=== PATIENT | male | born 1955 | race Caucasian/White ===

== ENCOUNTER 2017-03-14 11:59 | Inpatient (IN) | payer MEDICARE, MEDICAID ==
[~2017-03-14] VITALS: Ht 185.4 cm; Wt 65.8 kg
[2017-03-14] MEDS ORDERED: HALOPERIDOL 5 MG TABLET PO PRN (12:45)
[2017-03-14] MEDS ORDERED: LORazepam 2 MG TABLET PO PRN (12:45)
[2017-03-14] MEDS ORDERED: ZOLPIDEM TARTRATE 10 MG TABLET PO PRN (12:45)
[2017-03-14 12:54] VITALS: BP 111/63
[2017-03-14] MEDS ORDERED: TRAZ-144 PO (13:20)
[2017-03-14] MEDS ORDERED: CLON.5 PO (13:20)
[2017-03-14] MEDS ORDERED: OLAN10TA3 PO (13:20)
[2017-03-14] MEDS ORDERED: ARIP10TA8 PO (13:20)
[2017-03-14] MEDS ORDERED: ESCI20TA PO (13:20)
[2017-03-14] MEDS ORDERED: DEXL30CA3 PO (13:20)
[2017-03-14] MEDS ORDERED: PNEUMOCOCCAL VACCINE POLYVALENT 0.5 ML VIAL [PPSV23] IM ONE (13:30)
[2017-03-14 16:17] VITALS: BP 113/67
[2017-03-14] MEDS: ClonazePAM 0.5 MG TABLET PO SCH (16:45)
[2017-03-15 06:54] VITALS: BP 117/76
[2017-03-15] MEDS ORDERED: PETROLATUM,WHITE 71 GM JELLY TP PRN (07:15)
[2017-03-15] MEDS ORDERED: LOPERAMIDE HCL 2 MG CAPSULE PO PRN (07:15)
[2017-03-15] MEDS ORDERED: MAG HYDROX/AL HYDROX/SIMETH ES 30 ML SUSPENSION UDCUP PO PRN (07:15)
[2017-03-15] MEDS ORDERED: CloNIDine HCL 0.1 MG TABLET PO PRN (07:15)
[2017-03-15] MEDS ORDERED: ONDANSETRON HCL 4 MG TABLET PO PRN (07:15)
[2017-03-15] MEDS ORDERED: ALBUTEROL SULFATE HFA 90 MCG/PUFF 8 GM INHALER IH PRN (07:15)
[2017-03-15] MEDS ORDERED: BENZOCAINE/MENTHOL LOZENGE MM PRN (07:15)
[2017-03-15] MEDS ORDERED: IBUPROFEN 600 MG TABLET PO PRN (07:15)
[2017-03-15] MEDS ORDERED: MAGNESIUM HYDROXIDE SUSPENSION 30 ML UDCUP PO PRN (07:15)
[2017-03-15] MEDS ORDERED: BACITRACIN 28.4 GM OINTMENT TP PRN (07:15)
[2017-03-15] MEDS ORDERED: ACETAMINOPHEN 325 MG TABLET PO PRN (07:15)
[2017-03-15 08:36] LABS: BASOPHILS # (AUTO) 0.05 K/uL (0.00-0.20); BASOPHILS % (AUTO) 0.6 % (0.0-2.0); EOSINOPHILS # (AUTO) 0.03 K/uL (0.00-0.70); EOSINOPHILS % (AUTO) 0.34 % (1.0-6.0); HEMATOCRIT 34.7 % (41-53); HEMOGLOBIN 11.4 g/dL (13.5-17.5); LYMPHOCYTES % (AUTO) 23.1 % (22.0-44.0); MEAN CORPUSCULAR HEMOGLOBIN 30.7 pg (26.0-34.0); MEAN CORPUSCULAR VOLUME 93 fL (80-100); MONOCYTES # (AUTO) 0.5 K/uL (0.1-1.0); MONOCYTES % (AUTO) 5.4 % (2.0-9.0); NEUTROPHILS # (AUTO) 6.1 K/uL (1.8-7.7); NEUTROPHILS % (AUTO) 70.6 % (40.0-70.0); RED BLOOD CELL COUNT(AUTO) 3.73 MIL/uL (4.50-5.90); RED CELL DISTRIBUTION WIDTH 15.5 % (11.5-14.5)
[2017-03-15 08:39] VITALS: BP 111/73
[2017-03-15 08:40] LABS: PLATELET COUNT (AUTO) 750 K/uL (150-450)
[2017-03-15 08:41] LABS: HEMOGLOBIN A1C 6.2 % (4.5-6.2)
[2017-03-15 08:59] LABS: ALANINE AMINOTRANSFERASE 18 U/L (12-78); ALBUMIN 2.5 g/dL (3.4-5.0); ALKALINE PHOSPHATASE 79 U/L (46-116); ANION GAP 4 mmol/L (8-16); ASPARTATE AMINOTRANSFERASE 18 U/L (15-37); BILIRUBIN,TOTAL 0.2 mg/dL (0.1-1.0); CALCIUM, TOTAL 8.6 mg/dL (8.8-10.5); CARBON DIOXIDE 31 mmol/L (22-29); CHLORIDE 103 mmol/L (98-107); CHOL/HDL RATIO 4.6 (4.2-7.3); CHOLESTEROL 110 mg/dL (131-200); CREATININE 0.79 mg/dL (0.60-1.30); FREE T4 (FREE THYROXINE) 1.04 ng/dL (0.76-1.46); GLOMERULAR FILTR. RATE CALC > 60 mL/min (>60); GLUCOSE,RANDOM 84 mg/dL (70-110); HDL CHOLESTEROL 24 mg/dL (40-60); LDL CHOL (CALC.) 73 mg/dL (0-130); POTASSIUM 5.1 mmol/L (3.5-5.1); SODIUM SERUM 138 mmol/L (136-145); THYROID STIMULATING HORMONE 0.69 uIU/mL (0.36-3.74); TOTAL PROTEIN, SERUM 7.2 g/dL (6.4-8.2); TRIGLYCERIDES 64 mg/dL (15-150); UREA NITROGEN, BLOOD 23 mg/dL (7-18)
[2017-03-15] MEDS: ClonazePAM 0.5 MG TABLET PO SCH (09:00)
[2017-03-15] MEDS ORDERED: TraZODone HCL 50 MG TABLET PO SCH (09:00)
[2017-03-15] MEDS: ARIPiprazole 10 MG TABLET PO SCH (09:08)
[2017-03-15] MEDS: ESCITALOPRAM OXALATE 20 MG TABLET PO SCH (09:09)
[2017-03-15] MEDS: OLANZapine 10 MG TABLET PO SCH (09:09)
[2017-03-15 16:02] VITALS: BP 115/77
[2017-03-15] MEDS: TraZODone HCL 50 MG TABLET PO SCH (20:35)
[2017-03-16 00:03] VITALS: BP 114/81
[2017-03-16] MEDS: FERROUS SULFATE 325 MG EC TABLET PO SCH (06:56)
[2017-03-16 07:28] LABS: BASOPHILS # (AUTO) 0.04 K/uL (0.00-0.20); BASOPHILS % (AUTO) 0.5 % (0.0-2.0); EOSINOPHILS # (AUTO) 0.04 K/uL (0.00-0.70); EOSINOPHILS % (AUTO) 0.53 % (1.0-6.0); HEMATOCRIT 35.5 % (41-53); HEMOGLOBIN 11.9 g/dL (13.5-17.5); LYMPHOCYTES % (AUTO) 23.2 % (22.0-44.0); MEAN CORPUSCULAR HEMOGLOBIN 30.8 pg (26.0-34.0); MEAN CORPUSCULAR HGB CONC 33.4 G/dL (31.0-37.0); MEAN CORPUSCULAR VOLUME 92 fL (80-100); MONOCYTES # (AUTO) 0.6 K/uL (0.1-1.0); MONOCYTES % (AUTO) 6.8 % (2.0-9.0); NEUTROPHILS # (AUTO) 5.8 K/uL (1.8-7.7); NEUTROPHILS % (AUTO) 68.9 % (40.0-70.0); RED BLOOD CELL COUNT(AUTO) 3.85 MIL/uL (4.50-5.90); RED CELL DISTRIBUTION WIDTH 15.6 % (11.5-14.5)
[2017-03-16 07:37] LABS: PLATELET COUNT (AUTO) 850 K/uL (150-450)
[2017-03-16 08:07] VITALS: BP 111/70
[2017-03-16] MEDS: ARIPiprazole 10 MG TABLET PO SCH (08:54)
[2017-03-16] MEDS: OMEPRAZOLE 20 MG CAPSULE PO SCH (08:54)
[2017-03-16] MEDS: ESCITALOPRAM OXALATE 20 MG TABLET PO SCH (08:54)
[2017-03-16] MEDS: OLANZapine 10 MG TABLET PO SCH (08:54)
[2017-03-16] MEDS: TAMSULOSIN HCL 0.4 MG CAPSULE PO SCH (08:54)
[2017-03-16 09:49] LABS: PLATELET MORPHOLOGY COMMENT INCREASED
[2017-03-16 16:00] VITALS: BP 105/70
[2017-03-16] MEDS: TraZODone HCL 50 MG TABLET PO SCH (20:06)
[2017-03-17 01:37] VITALS: BP 110/67
[2017-03-17] MEDS: FERROUS SULFATE 325 MG EC TABLET PO SCH (07:02)
[2017-03-17 08:27] VITALS: BP 116/67
[2017-03-17] MEDS: ARIPiprazole 10 MG TABLET PO SCH (08:54)
[2017-03-17] MEDS: TAMSULOSIN HCL 0.4 MG CAPSULE PO SCH (08:54)
[2017-03-17] MEDS: OMEPRAZOLE 20 MG CAPSULE PO SCH (08:54)
[2017-03-17] MEDS: ESCITALOPRAM OXALATE 20 MG TABLET PO SCH (08:54)
[2017-03-17] MEDS: OLANZapine 10 MG TABLET PO SCH (08:55)
[2017-03-17] MEDS: ASPIRIN 81 MG CHEWABLE TABLET PO SCH (10:20)
[2017-03-17 16:04] VITALS: BP 121/73
[2017-03-17] MEDS: TraZODone HCL 50 MG TABLET PO SCH (20:09)
[2017-03-18 00:50] VITALS: BP 119/65
[2017-03-18] MEDS: FERROUS SULFATE 325 MG EC TABLET PO SCH (06:52)
[2017-03-18 08:19] LABS: BASOPHILS % (AUTO) 1.2 % (0.0-2.0); EOSINOPHILS % (AUTO) 0.9 % (1.0-6.0); HEMATOCRIT 35.5 % (41-53); HEMOGLOBIN 11.9 g/dL (13.5-17.5); LYMPHOCYTES # (AUTO) 2.4 K/uL (1.0-4.8); LYMPHOCYTES % (AUTO) 30.2 % (22.0-44.0); MEAN CORPUSCULAR HEMOGLOBIN 30.6 pg (26.0-34.0); MEAN CORPUSCULAR HGB CONC 33.5 G/dL (31.0-37.0); MEAN CORPUSCULAR VOLUME 91 fL (80-100); MONOCYTES # (AUTO) 0.6 K/uL (0.1-1.0); MONOCYTES % (AUTO) 7.2 % (2.0-9.0); NEUTROPHILS # (AUTO) 4.7 K/uL (1.8-7.7); NEUTROPHILS % (AUTO) 60.5 % (40.0-70.0); RED BLOOD CELL COUNT(AUTO) 3.89 MIL/uL (4.50-5.90)
[2017-03-18 08:29] VITALS: BP 126/72
[2017-03-18] MEDS: ASPIRIN 81 MG CHEWABLE TABLET PO SCH (08:57)
[2017-03-18] MEDS: OMEPRAZOLE 20 MG CAPSULE PO SCH (08:57)
[2017-03-18] MEDS: ESCITALOPRAM OXALATE 20 MG TABLET PO SCH (08:57)
[2017-03-18] MEDS: OLANZapine 10 MG TABLET PO SCH (08:57)
[2017-03-18] MEDS: TAMSULOSIN HCL 0.4 MG CAPSULE PO SCH (08:57)
[2017-03-18] MEDS: ARIPiprazole 10 MG TABLET PO SCH (08:57)
[2017-03-18 09:03] LABS: PLATELET COUNT (AUTO) 833 K/uL (150-450)
[2017-03-18 09:07] LABS: ALANINE AMINOTRANSFERASE 15 U/L (12-78); ALBUMIN 2.5 g/dL (3.4-5.0); ALKALINE PHOSPHATASE 74 U/L (46-116); ANION GAP 4 mmol/L (8-16); ASPARTATE AMINOTRANSFERASE 18 U/L (15-37); CALCIUM, TOTAL 8.8 mg/dL (8.8-10.5); CARBON DIOXIDE 31 mmol/L (22-29); CHLORIDE 104 mmol/L (98-107); GLOMERULAR FILTR. RATE CALC > 60 mL/min (>60); GLUCOSE,RANDOM 78 mg/dL (70-110); POTASSIUM 3.9 mmol/L (3.5-5.1); SODIUM SERUM 139 mmol/L (136-145); TOTAL PROTEIN, SERUM 7.6 g/dL (6.4-8.2); UREA NITROGEN, BLOOD 31 mg/dL (7-18)
[2017-03-18 09:19] LABS: BILIRUBIN,TOTAL 0.2 mg/dL (0.1-1.0)
[2017-03-18 16:18] VITALS: BP 117/70
[2017-03-18] MEDS: ClonazePAM 0.5 MG TABLET PO PRN (19:03)
[2017-03-18] MEDS: TraZODone HCL 50 MG TABLET PO SCH (20:33)
[2017-03-19] MEDS: FERROUS SULFATE 325 MG EC TABLET PO SCH (06:25)
[2017-03-19 06:42] VITALS: BP 110/73
[2017-03-19 07:58] LABS: BASOPHILS # (AUTO) 0.07 K/uL (0.00-0.20); BASOPHILS % (AUTO) 0.8 % (0.0-2.0); EOSINOPHILS # (AUTO) 0.07 K/uL (0.00-0.70); EOSINOPHILS % (AUTO) 0.79 % (1.0-6.0); HEMATOCRIT 34.3 % (41-53); HEMOGLOBIN 11.3 g/dL (13.5-17.5); LYMPHOCYTES # (AUTO) 2.5 K/uL (1.0-4.8); LYMPHOCYTES % (AUTO) 28.8 % (22.0-44.0); MEAN CORPUSCULAR HEMOGLOBIN 30.2 pg (26.0-34.0); MEAN CORPUSCULAR HGB CONC 32.9 G/dL (31.0-37.0); MEAN CORPUSCULAR VOLUME 92 fL (80-100); MONOCYTES # (AUTO) 0.5 K/uL (0.1-1.0); MONOCYTES % (AUTO) 5.8 % (2.0-9.0); NEUTROPHILS # (AUTO) 5.6 K/uL (1.8-7.7); NEUTROPHILS % (AUTO) 63.8 % (40.0-70.0); PLATELET COUNT (AUTO) 705 K/uL (150-450); RED BLOOD CELL COUNT(AUTO) 3.74 MIL/uL (4.50-5.90); RED CELL DISTRIBUTION WIDTH 15.4 % (11.5-14.5)
[2017-03-19 08:20] LABS: ANION GAP 6 mmol/L (8-16); CALCIUM, TOTAL 8.4 mg/dL (8.8-10.5); CARBON DIOXIDE 30 mmol/L (22-29); CHLORIDE 101 mmol/L (98-107); CREATININE 0.76 mg/dL (0.60-1.30); GLOMERULAR FILTR. RATE CALC > 60 mL/min (>60); GLUCOSE,RANDOM 81 mg/dL (70-110); POTASSIUM 4.1 mmol/L (3.5-5.1); SODIUM SERUM 137 mmol/L (136-145); UREA NITROGEN, BLOOD 26 mg/dL (7-18)
[2017-03-19 08:22] VITALS: BP 112/68
[2017-03-19] MEDS: ARIPiprazole 10 MG TABLET PO SCH (08:50)
[2017-03-19] MEDS: OLANZapine 10 MG TABLET PO SCH (08:50)
[2017-03-19] MEDS: ESCITALOPRAM OXALATE 20 MG TABLET PO SCH (08:50)
[2017-03-19] MEDS: OMEPRAZOLE 20 MG CAPSULE PO SCH (08:50)
[2017-03-19] MEDS: TAMSULOSIN HCL 0.4 MG CAPSULE PO SCH (08:50)
[2017-03-19] MEDS: ASPIRIN 81 MG CHEWABLE TABLET PO SCH (08:50)
[2017-03-19 16:00] VITALS: BP 113/70
[2017-03-19] MEDS: ClonazePAM 0.5 MG TABLET PO PRN (19:55)
[2017-03-19] MEDS: TraZODone HCL 50 MG TABLET PO SCH (20:39)
[2017-03-20 03:44] VITALS: BP 107/67
[2017-03-20] MEDS: FERROUS SULFATE 325 MG EC TABLET PO SCH (06:33)
[2017-03-20 08:27] LABS: HEMOGLOBIN 11.6 g/dL (13.5-17.5); MEAN CORPUSCULAR HEMOGLOBIN 29.7 pg (26.0-34.0); MEAN CORPUSCULAR HGB CONC 32.3 G/dL (31.0-37.0); MEAN CORPUSCULAR VOLUME 92 fL (80-100); PLATELET COUNT (AUTO) 661 K/uL (150-450); RED BLOOD CELL COUNT(AUTO) 3.91 MIL/uL (4.50-5.90); RED CELL DISTRIBUTION WIDTH 15.8 % (11.5-14.5)
[2017-03-20] MEDS: OMEPRAZOLE 20 MG CAPSULE PO SCH (08:34)
[2017-03-20] MEDS: TAMSULOSIN HCL 0.4 MG CAPSULE PO SCH (08:35)
[2017-03-20] MEDS: OLANZapine 10 MG TABLET PO SCH (08:35)
[2017-03-20] MEDS: ASPIRIN 81 MG CHEWABLE TABLET PO SCH (08:35)
[2017-03-20] MEDS: ARIPiprazole 10 MG TABLET PO SCH (08:35)
[2017-03-20] MEDS: ESCITALOPRAM OXALATE 20 MG TABLET PO SCH (08:35)
[2017-03-20 08:38] VITALS: BP 102/59
[2017-03-20 09:12] LABS: ANION GAP 5 mmol/L (8-16); CALCIUM, TOTAL 8.6 mg/dL (8.8-10.5); CARBON DIOXIDE 32 mmol/L (22-29); CHLORIDE 101 mmol/L (98-107); CREATININE 0.76 mg/dL (0.60-1.30); GLOMERULAR FILTR. RATE CALC > 60 mL/min (>60); GLUCOSE,RANDOM 84 mg/dL (70-110); SODIUM SERUM 138 mmol/L (136-145); UREA NITROGEN, BLOOD 26 mg/dL (7-18)
[2017-03-20 10:52] LABS: EOSINOPHILS % (MANUAL) 1 % (1-6); LYMPHOCYTES % (MANUAL) 19 % (22-44); MONOCYTES % (MANUAL) 7 % (2-9); SEGMENTED NEUTROPHILS % 73 % (40-70)
[2017-03-20 16:34] VITALS: BP 119/79
[2017-03-20 19:10] VITALS: BP 126/75
[2017-03-20] MEDS: ClonazePAM 0.5 MG TABLET PO PRN (19:10)
[2017-03-20] MEDS: TraZODone HCL 50 MG TABLET PO SCH (20:31)
[2017-03-21] MEDS: ClonazePAM 0.5 MG TABLET PO PRN ×2 (06:37→16:32)
[2017-03-21 06:43] VITALS: BP 100/62
[2017-03-21] MEDS: FERROUS SULFATE 325 MG EC TABLET PO SCH (07:04)
[2017-03-21 08:05] VITALS: BP 107/60
[2017-03-21 08:27] LABS: ANION GAP 1 mmol/L (8-16); CALCIUM, TOTAL 8.5 mg/dL (8.8-10.5); CARBON DIOXIDE 33 mmol/L (22-29); CHLORIDE 103 mmol/L (98-107); GLOMERULAR FILTR. RATE CALC > 60 mL/min (>60); GLUCOSE,RANDOM 82 mg/dL (70-110); SODIUM SERUM 137 mmol/L (136-145); UREA NITROGEN, BLOOD 29 mg/dL (7-18)
[2017-03-21] MEDS: TAMSULOSIN HCL 0.4 MG CAPSULE PO SCH (08:40)
[2017-03-21] MEDS: ESCITALOPRAM OXALATE 20 MG TABLET PO SCH (08:40)
[2017-03-21] MEDS: OLANZapine 10 MG TABLET PO SCH (08:40)
[2017-03-21] MEDS: ASPIRIN 81 MG CHEWABLE TABLET PO SCH (08:40)
[2017-03-21] MEDS: OMEPRAZOLE 20 MG CAPSULE PO SCH (08:40)
[2017-03-21] MEDS: ARIPiprazole 10 MG TABLET PO SCH (08:40)
[2017-03-21 16:23] VITALS: BP 118/73
[2017-03-21] MEDS: TraZODone HCL 50 MG TABLET PO SCH (20:37)
[2017-03-22 01:23] VITALS: BP 108/62
[2017-03-22] MEDS: FERROUS SULFATE 325 MG EC TABLET PO SCH (07:10)
[2017-03-22 08:20] VITALS: BP 102/72
[2017-03-22 08:28] LABS: BASOPHILS % (AUTO) 0.8 % (0.0-2.0); EOSINOPHILS % (AUTO) 1.7 % (1.0-6.0); HEMATOCRIT 35.1 % (41-53); HEMOGLOBIN 11.6 g/dL (13.5-17.5); LYMPHOCYTES # (AUTO) 2.2 K/uL (1.0-4.8); LYMPHOCYTES % (AUTO) 30.2 % (22.0-44.0); MEAN CORPUSCULAR HGB CONC 33.2 G/dL (31.0-37.0); MEAN CORPUSCULAR VOLUME 90 fL (80-100); MONOCYTES # (AUTO) 0.5 K/uL (0.1-1.0); MONOCYTES % (AUTO) 6.9 % (2.0-9.0); NEUTROPHILS # (AUTO) 4.4 K/uL (1.8-7.7); NEUTROPHILS % (AUTO) 60.4 % (40.0-70.0); PLATELET COUNT (AUTO) 667 K/uL (150-450); RED BLOOD CELL COUNT(AUTO) 3.88 MIL/uL (4.50-5.90); RED CELL DISTRIBUTION WIDTH 16.1 % (11.5-14.5)
[2017-03-22] MEDS: ARIPiprazole 10 MG TABLET PO SCH (08:33)
[2017-03-22] MEDS: ASPIRIN 81 MG CHEWABLE TABLET PO SCH (08:33)
[2017-03-22] MEDS: OMEPRAZOLE 20 MG CAPSULE PO SCH (08:33)
[2017-03-22] MEDS: TAMSULOSIN HCL 0.4 MG CAPSULE PO SCH (08:33)
[2017-03-22] MEDS: OLANZapine 10 MG TABLET PO SCH (08:33)
[2017-03-22] MEDS: ESCITALOPRAM OXALATE 20 MG TABLET PO SCH (08:33)
[2017-03-22 09:43] LABS: ANION GAP 3 mmol/L (8-16); CALCIUM, TOTAL 8.5 mg/dL (8.8-10.5); CARBON DIOXIDE 31 mmol/L (22-29); CHLORIDE 103 mmol/L (98-107); CREATININE 0.77 mg/dL (0.60-1.30); GLOMERULAR FILTR. RATE CALC > 60 mL/min (>60); GLUCOSE,RANDOM 79 mg/dL (70-110); POTASSIUM 4.6 mmol/L (3.5-5.1); SODIUM SERUM 137 mmol/L (136-145); UREA NITROGEN, BLOOD 28 mg/dL (7-18)
[2017-03-22 12:09] VITALS: BP 114/81
[2017-03-22] MEDS: ClonazePAM 0.5 MG TABLET PO PRN (12:10)
[2017-03-22 16:04] VITALS: BP 112/69
[2017-03-22] MEDS: TraZODone HCL 50 MG TABLET PO SCH (20:14)
[2017-03-23] VITALS: BP 107/62
[2017-03-23] MEDS: FERROUS SULFATE 325 MG EC TABLET PO SCH (06:28)
[2017-03-23 07:44] LABS: BASOPHILS # (AUTO) 0.06 K/uL (0.00-0.20); BASOPHILS % (AUTO) 0.8 % (0.0-2.0); EOSINOPHILS # (AUTO) 0.16 K/uL (0.00-0.70); EOSINOPHILS % (AUTO) 2.04 % (1.0-6.0); HEMATOCRIT 35.6 % (41-53); HEMOGLOBIN 11.7 g/dL (13.5-17.5); LYMPHOCYTES # (AUTO) 2.4 K/uL (1.0-4.8); LYMPHOCYTES % (AUTO) 31.1 % (22.0-44.0); MEAN CORPUSCULAR HEMOGLOBIN 30.3 pg (26.0-34.0); MEAN CORPUSCULAR HGB CONC 32.9 G/dL (31.0-37.0); MEAN CORPUSCULAR VOLUME 92 fL (80-100); MONOCYTES # (AUTO) 0.6 K/uL (0.1-1.0); MONOCYTES % (AUTO) 7.4 % (2.0-9.0); NEUTROPHILS # (AUTO) 4.6 K/uL (1.8-7.7); NEUTROPHILS % (AUTO) 58.7 % (40.0-70.0); PLATELET COUNT (AUTO) 599 K/uL (150-450); RED BLOOD CELL COUNT(AUTO) 3.86 MIL/uL (4.50-5.90); RED CELL DISTRIBUTION WIDTH 16.3 % (11.5-14.5)
[2017-03-23 08:20] LABS: ANION GAP 3 mmol/L (8-16); CALCIUM, TOTAL 8.5 mg/dL (8.8-10.5); CARBON DIOXIDE 32 mmol/L (22-29); CHLORIDE 103 mmol/L (98-107); CREATININE 0.91 mg/dL (0.60-1.30); GLOMERULAR FILTR. RATE CALC > 60 mL/min (>60); GLUCOSE,RANDOM 79 mg/dL (70-110); POTASSIUM 4.5 mmol/L (3.5-5.1); SODIUM SERUM 138 mmol/L (136-145); UREA NITROGEN, BLOOD 30 mg/dL (7-18)
[2017-03-23] MEDS: ESCITALOPRAM OXALATE 20 MG TABLET PO SCH (08:21)
[2017-03-23] MEDS: ASPIRIN 81 MG CHEWABLE TABLET PO SCH (08:21)
[2017-03-23 08:22] VITALS: BP 112/72
[2017-03-23] MEDS: TAMSULOSIN HCL 0.4 MG CAPSULE PO SCH (08:22)
[2017-03-23] MEDS: OLANZapine 10 MG TABLET PO SCH (08:22)
[2017-03-23] MEDS: ARIPiprazole 10 MG TABLET PO SCH (08:22)
[2017-03-23] MEDS: OMEPRAZOLE 20 MG CAPSULE PO SCH (08:22)
[2017-03-23] MEDS: ClonazePAM 0.5 MG TABLET PO PRN ×2 (11:56→20:32)
[2017-03-23 16:23] VITALS: BP 101/61
[2017-03-23 20:33] VITALS: BP 114/75
[2017-03-23] MEDS: TraZODone HCL 50 MG TABLET PO SCH (21:01)
[2017-03-24 00:10] VITALS: BP 116/67
[2017-03-24] MEDS: FERROUS SULFATE 325 MG EC TABLET PO SCH (06:57)
[2017-03-24 07:54] LABS: BASOPHILS # (AUTO) 0.05 K/uL (0.00-0.20); BASOPHILS % (AUTO) 0.7 % (0.0-2.0); EOSINOPHILS # (AUTO) 0.17 K/uL (0.00-0.70); EOSINOPHILS % (AUTO) 2.33 % (1.0-6.0); HEMATOCRIT 34.3 % (41-53); HEMOGLOBIN 11.4 g/dL (13.5-17.5); LYMPHOCYTES # (AUTO) 2.5 K/uL (1.0-4.8); MEAN CORPUSCULAR HEMOGLOBIN 30.5 pg (26.0-34.0); MEAN CORPUSCULAR HGB CONC 33.1 G/dL (31.0-37.0); MEAN CORPUSCULAR VOLUME 92 fL (80-100); MONOCYTES # (AUTO) 0.6 K/uL (0.1-1.0); MONOCYTES % (AUTO) 7.8 % (2.0-9.0); NEUTROPHILS # (AUTO) 4.2 K/uL (1.8-7.7); NEUTROPHILS % (AUTO) 56.2 % (40.0-70.0); PLATELET COUNT (AUTO) 534 K/uL (150-450); RED BLOOD CELL COUNT(AUTO) 3.73 MIL/uL (4.50-5.90); RED CELL DISTRIBUTION WIDTH 16.4 % (11.5-14.5)
[2017-03-24 08:03] VITALS: BP 107/77
[2017-03-24 08:09] LABS: ANION GAP 2 mmol/L (8-16); CALCIUM, TOTAL 8.2 mg/dL (8.8-10.5); CARBON DIOXIDE 33 mmol/L (22-29); CHLORIDE 103 mmol/L (98-107); CREATININE 0.85 mg/dL (0.60-1.30); GLOMERULAR FILTR. RATE CALC > 60 mL/min (>60); GLUCOSE,RANDOM 80 mg/dL (70-110); POTASSIUM 3.9 mmol/L (3.5-5.1); SODIUM SERUM 138 mmol/L (136-145); UREA NITROGEN, BLOOD 24 mg/dL (7-18)
[2017-03-24] MEDS: ASPIRIN 81 MG CHEWABLE TABLET PO SCH (08:18)
[2017-03-24] MEDS: ESCITALOPRAM OXALATE 20 MG TABLET PO SCH (08:18)
[2017-03-24] MEDS: OMEPRAZOLE 20 MG CAPSULE PO SCH (08:18)
[2017-03-24] MEDS: TAMSULOSIN HCL 0.4 MG CAPSULE PO SCH (08:18)
[2017-03-24] MEDS: ARIPiprazole 10 MG TABLET PO SCH (08:19)
[2017-03-24] MEDS: OLANZapine 10 MG TABLET PO SCH (08:19)
[2017-03-24] MEDS: ClonazePAM 0.5 MG TABLET PO PRN ×2 (12:18→20:26)
[2017-03-24 16:02] VITALS: BP 123/76
[2017-03-24 20:23] VITALS: BP 122/71
[2017-03-24] MEDS: TraZODone HCL 50 MG TABLET PO SCH (20:48)
[2017-03-25 03:10] VITALS: BP 120/78
[2017-03-25] MEDS: FERROUS SULFATE 325 MG EC TABLET PO SCH (06:51)
[2017-03-25 08:16] LABS: BASOPHILS # (AUTO) 0.07 K/uL (0.00-0.20); BASOPHILS % (AUTO) 0.7 % (0.0-2.0); EOSINOPHILS # (AUTO) 0.18 K/uL (0.00-0.70); EOSINOPHILS % (AUTO) 2.04 % (1.0-6.0); HEMATOCRIT 34.4 % (41-53); HEMOGLOBIN 11.4 g/dL (13.5-17.5); LYMPHOCYTES # (AUTO) 2.4 K/uL (1.0-4.8); LYMPHOCYTES % (AUTO) 27.5 % (22.0-44.0); MEAN CORPUSCULAR HEMOGLOBIN 30.8 pg (26.0-34.0); MEAN CORPUSCULAR HGB CONC 33.1 G/dL (31.0-37.0); MEAN CORPUSCULAR VOLUME 93 fL (80-100); MONOCYTES # (AUTO) 0.6 K/uL (0.1-1.0); MONOCYTES % (AUTO) 7.2 % (2.0-9.0); NEUTROPHILS # (AUTO) 5.5 K/uL (1.8-7.7); NEUTROPHILS % (AUTO) 62.5 % (40.0-70.0); PLATELET COUNT (AUTO) 526 K/uL (150-450); RED BLOOD CELL COUNT(AUTO) 3.69 MIL/uL (4.50-5.90); RED CELL DISTRIBUTION WIDTH 16.5 % (11.5-14.5)
[2017-03-25 08:22] LABS: ANION GAP 4 mmol/L (8-16); CALCIUM, TOTAL 8.2 mg/dL (8.8-10.5); CARBON DIOXIDE 32 mmol/L (22-29); CHLORIDE 105 mmol/L (98-107); CREATININE 0.68 mg/dL (0.60-1.30); GLOMERULAR FILTR. RATE CALC > 60 mL/min (>60); GLUCOSE,RANDOM 84 mg/dL (70-110); POTASSIUM 3.9 mmol/L (3.5-5.1); SODIUM SERUM 141 mmol/L (136-145); UREA NITROGEN, BLOOD 23 mg/dL (7-18)
[2017-03-25 08:30] VITALS: BP 122/76
[2017-03-25] MEDS: OMEPRAZOLE 20 MG CAPSULE PO SCH (08:37)
[2017-03-25] MEDS: OLANZapine 10 MG TABLET PO SCH (08:37)
[2017-03-25] MEDS: ARIPiprazole 10 MG TABLET PO SCH (08:38)
[2017-03-25] MEDS: ESCITALOPRAM OXALATE 20 MG TABLET PO SCH (08:38)
[2017-03-25] MEDS: TAMSULOSIN HCL 0.4 MG CAPSULE PO SCH (08:38)
[2017-03-25] MEDS: ASPIRIN 81 MG CHEWABLE TABLET PO SCH (08:38)
[2017-03-25] MEDS: ClonazePAM 0.5 MG TABLET PO PRN ×2 (09:28→17:50)
[2017-03-25 16:12] VITALS: BP 104/60
[2017-03-25 17:50] VITALS: BP 110/68
[2017-03-25] MEDS: TraZODone HCL 50 MG TABLET PO SCH (20:40)
[2017-03-26 00:26] VITALS: BP 119/74
[2017-03-26] MEDS: FERROUS SULFATE 325 MG EC TABLET PO SCH (06:59)
[2017-03-26] MEDS: OMEPRAZOLE 20 MG CAPSULE PO SCH (08:20)
[2017-03-26] MEDS: TAMSULOSIN HCL 0.4 MG CAPSULE PO SCH (08:21)
[2017-03-26] MEDS: OLANZapine 10 MG TABLET PO SCH (08:21)
[2017-03-26] MEDS: ASPIRIN 81 MG CHEWABLE TABLET PO SCH (08:21)
[2017-03-26] MEDS: ESCITALOPRAM OXALATE 20 MG TABLET PO SCH (08:21)
[2017-03-26] MEDS: ARIPiprazole 10 MG TABLET PO SCH (08:21)
[2017-03-26 08:36] VITALS: BP 122/60
[2017-03-26 08:40] LABS: ANION GAP 5 mmol/L (8-16); CALCIUM, TOTAL 8.5 mg/dL (8.8-10.5); CARBON DIOXIDE 31 mmol/L (22-29); CHLORIDE 102 mmol/L (98-107); CREATININE 0.65 mg/dL (0.60-1.30); GLOMERULAR FILTR. RATE CALC > 60 mL/min (>60); GLUCOSE,RANDOM 80 mg/dL (70-110); POTASSIUM 4.4 mmol/L (3.5-5.1); SODIUM SERUM 138 mmol/L (136-145); UREA NITROGEN, BLOOD 25 mg/dL (7-18)
[2017-03-26 09:08] LABS: BASOPHILS # (AUTO) 0.03 K/uL (0.00-0.20); BASOPHILS % (AUTO) 0.4 % (0.0-2.0); EOSINOPHILS # (AUTO) 0.18 K/uL (0.00-0.70); EOSINOPHILS % (AUTO) 2.29 % (1.0-6.0); HEMATOCRIT 35.2 % (41-53); HEMOGLOBIN 11.5 g/dL (13.5-17.5); LYMPHOCYTES # (AUTO) 2.4 K/uL (1.0-4.8); LYMPHOCYTES % (AUTO) 29.3 % (22.0-44.0); MEAN CORPUSCULAR HEMOGLOBIN 30.3 pg (26.0-34.0); MEAN CORPUSCULAR HGB CONC 32.7 G/dL (31.0-37.0); MEAN CORPUSCULAR VOLUME 93 fL (80-100); MONOCYTES # (AUTO) 0.7 K/uL (0.1-1.0); MONOCYTES % (AUTO) 8.5 % (2.0-9.0); NEUTROPHILS # (AUTO) 4.8 K/uL (1.8-7.7); NEUTROPHILS % (AUTO) 59.5 % (40.0-70.0); PLATELET COUNT (AUTO) 462 K/uL (150-450); RED CELL DISTRIBUTION WIDTH 16.8 % (11.5-14.5)
[2017-03-26] MEDS: ClonazePAM 0.5 MG TABLET PO PRN (09:37)
[2017-03-26] MEDS ORDERED: FERR-89 PO (13:17)
[2017-03-26] MEDS ORDERED: ASPI81TA33 PO (13:17)
[2017-03-26] MEDS ORDERED: TAMS0.4C32 PO (13:17)
== END 2017-03-26 14:30 | disposition home or self-care (01) | DRG 885 ==
LOC: B2X 12:47
PROVIDERS: ADMIT Psychiatry & Neurology Child & Adolescent Psychiatry; ATTEND Psychiatry & Neurology Child & Adolescent Psychiatry
DX: F25.0 Schizoaffective disorder, bipolar type (principal); E44.1 Mild protein-calorie malnutrition; R45.851 Suicidal ideations; Z68.1 Body mass index [BMI] 19.9 or less, adult; E83.51 Hypocalcemia; G47.00 Insomnia, unspecified; I10 Essential (primary) hypertension; K21.9 Gastro-esophageal reflux disease without esophagitis; N40.0 Benign prostatic hyperplasia without lower urinary tract symptoms; M79.671 Pain in right foot; M79.672 Pain in left foot; F12.90 Cannabis use, unspecified, uncomplicated; Z79.899 Other long term (current) drug therapy; Z59.9 Problem related to housing and economic circumstances, unspecified; Z91.19 Patient's noncompliance with other medical treatment and regimen; Z72.89 Other problems related to lifestyle; Z88.5 Allergy status to narcotic agent; Z88.0 Allergy status to penicillin; Z91.048 Other nonmedicinal substance allergy status; Z59.0 Homelessness
CPT/HCPCS: 82306; 83036; 84439; 84443; 85007; Q0162